=== PATIENT | male | born 1965 | race African-American/Black ===

== ENCOUNTER 2016-11-02 20:21 | Inpatient (IN) | payer OTHER ==
--- NOTE | 2016-11-02 21:49 | PDOC ---
History of Present Illness - General History Source: Patient Exam Limitations: No Limitations - History of Present Illness Initial Comments: 11/02/16 21:53 The patient is a 51 year old male, with a significant past medical history of HTN who presents to the emergency department with epigastric pain for the past 2 days. Patient states his pain is associated with nausea and vomiting ( nonbilious, nonbloody). Patient denies any fever or chills. Patient states he has never experienced this pain before and presents to the ED for further evaluation. He denies chest pain, headache or dizziness. He denies diarrhea or constipation. He denies dysuria, frequency, urgency or hematuria. Allergies: NKA Past surgical history: Femoral stent placement Social history: current everyday smoker PCP: None <Denisha Denney - Last Filed: 11/02/16 21:55> - General History Source: Patient <José ManuelRodrigo marks - Last Filed: 11/03/16 21:38> - General Chief Complaint: Pain Stated Complaint: CHEST PAIN Time Seen by Provider: 11/02/16 21:46 Past History <Denisha Denney - Last Filed: 11/02/16 21:55> - Past Medical History HTN: Yes - Suicide/Smoking/Psychosocial Hx Smoking History: Current every day smoker Have you smoked in the past 12 months: Yes Number of Cigarettes Smoked Daily: 7 Information on smoking cessation initiated: No Hx Alcohol Use: No Drug/Substance Use Hx: No Substance Use Type: None <Rodrigo Forrester - Last Filed: 11/03/16 21:38> - Past Medical History Allergies/Adverse Reactions: Allergies Allergy/AdvReac Type Severity Reaction Status Date / Time Penicillins Allergy Verified 11/02/16 21:53 Home Medications: Ambulatory Orders Amlodipine Besylate [Norvasc -] 10 mg PO DAILY 11/02/16 Aspirin [Aspirin EC] 81 mg PO DAILY 11/02/16 Clopidogrel Bisulfate [Plavix -] 75 mg PO DAILY 11/02/16 Lisinopril [Prinivil] 20 mg PO DAILY 11/02/16 Review of Systems - Review of Systems Able to Perform ROS?: Yes Comments:: 11/02/16 21:53 GENERAL/CONSTITUTIONAL: No fever or chills. No weakness. HEAD, EYES, EARS, NOSE AND THROAT: No change in vision. No ear pain or discharge. No sore throat. GASTROINTESTINAL: No nausea, vomiting, diarrhea or constipation. GENITOURINARY: No dysuria, frequency, or change in urination. CARDIOVASCULAR: No chest pain or shortness of breath. RESPIRATORY: No cough, wheezing, or hemoptysis. MUSCULOSKELETAL: No joint or muscle swelling or pain. No neck or back pain. SKIN: No rash NEUROLOGIC: No headache, vertigo, loss of consciousness, or change in strength/ sensation. ENDOCRINE: No increased thirst. No abnormal weight change. HEMATOLOGIC/LYMPHATIC: No anemia, easy bleeding, or history of blood clots. ALLERGIC/IMMUNOLOGIC: No hives or skin allergy. <Denisha Denney - Last Filed: 11/02/16 21:55> *Physical Exam - Vital Signs Last Vital Signs Temp Pulse Resp BP Pulse Ox 99.0 F 75 18 181/95 100 11/02/16 20:44 11/02/16 20:44 11/02/16 20:44 11/02/16 20:44 11/02/16 20:44 - Physical Exam Comments: 11/02/16 21:53 GENERAL: Awake, alert, and fully oriented, in +mild distress HEAD: No signs of trauma EYES: PERRLA, EOMI, sclera anicteric, conjunctiva clear ENT: Auricles normal inspection, hearing grossly normal, nares patent, oropharynx clear without exudates. Moist mucosa NECK: Normal ROM, supple, no lymphadenopathy, JVD, or masses LUNGS: Breath sounds equal, clear to auscultation bilaterally. No wheezes, and no crackles HEART: Regular rate and rhythm, normal S1 and S2, no murmurs, rubs or gallops ABDOMEN: + positive song's sign. Soft, nontender, normoactive bowel sounds. No guarding, no rebound. No masses EXTREMITIES: Normal range of motion, no edema. No clubbing or cyanosis. No cords, erythema, or tenderness NEUROLOGICAL: Cranial nerves II through XII grossly intact. Normal speech, normal gait SKIN: Warm, Dry, normal turgor, no rashes or lesions noted. <Denisha Denney - Last Filed: 11/02/16 21:55> - Vital Signs Last Vital Signs Temp Pulse Resp BP Pulse Ox 99.0 F 75 18 181/95 100 11/02/16 20:44 11/02/16 20:44 11/02/16 20:44 11/02/16 20:44 11/02/16 20:44 <Rodrigo Forrester - Last Filed: 11/03/16 21:38> ED Treatment Course - LABORATORY CBC & Chemistry Diagram: 11/03/16 20:45 11/03/16 08:40 <Rodrigo Forrester - Last Filed: 11/03/16 21:38> Medical Decision Making - Medical Decision Making 11/02/16 21:[address] Forrester Vent. rate 77 bpm NSR Cannot rule out Inferior infarct, age undetermined Abnormal ECG <Denisha Denney - Last Filed: 11/02/16 21:55> - Medical Decision Making 11/03/16 21:37 Dr. Forrester: The scribe's documentation has been prepared under my direction and personally reviewed by me in its entirery. I confirm that the note above accurately reflects all work, treatment, procedures, and medical decision making performed by me. <Rodrigo Forrester - Last Filed: 11/03/16 21:38> *DC/Admit/Observation/Transfer - Attestations Scribe Attestion: 11/02/16 21:53 Documentation prepared by Denisha Denney, acting as certified medical technician for Rodrigo Forrester DO. <Denisha Denney - Last Filed: 11/02/16 21:55> - Discharge Dispostion Admit: Yes <Rodrigo Forrester - Last Filed: 11/03/16 21:38> Diagnosis at time of Disposition: Pancreatitis Qualifiers: Chronicity: acute Pancreatitis type: other Acute pancreatitis complication: unspecified Qualified Code(s): K85.80 - Other acute pancreatitis without necrosis or infection
[2016-11-02] MEDS ORDERED: morphine CARPU-JECT 2 MG/1 ML DISP.SYRIN IVPUSH ONE (21:50)
[2016-11-02] MEDS ORDERED: ONDANSETRON 4 MG/2 ML VIAL IVPUSH STA (21:51)
[2016-11-02] MEDS ORDERED: morphine CARPU-JECT 4 MG/1 ML DISP.SYRIN ONE (22:12)
[2016-11-02] MEDS ORDERED: ONDANSETRON 4 MG/2 ML VIAL ONE (22:12)
[2016-11-02 22:14] LABS: BASOPHIL 1.1 % (0-2.0); EOSINOPHIL 1.6 % (0-4.5); MCH 27.8 pg (25.7-33.7); MCHC 32.8 g/dl (32.0-35.9); MEAN CELL VOLUME 84.9 fl (80-96); MEAN PLT VOLUME 7.7 fl (7.5-11.1); NEUTROPHILS 79.1 % (42.8-82.8); PLATELET COUNT 265 K/MM3 (134-434); RDW 15.7 % (11.9-15.9); WHITE BLOOD COUNT 16.7 K/mm3 (4.0-10.0)
[2016-11-02 22:27] LABS: INR 1.11 (0.82-1.09); PROTHROMBIN TIME (PATIENT) 12.2 SEC (9.98-11.88)
[2016-11-02 23:15] LABS: ANION GAP 9 (8-16); BILIRUBIN,TOTAL 0.4 mg/dL (0.2-1.0); CALCIUM 9.6 mg/dL (8.5-10.1); CO2 30 mmol/L (21-32); CREATININE 1.1 mg/dL (0.7-1.3); GLUCOSE,RANDOM 131 mg/dL (74-106); MAGNESIUM 2.2 mg/dL (1.8-2.4); SGOT/AST 20 U/L (15-37); SGPT/ALT 30 U/L (12-78); TOT PROT 8.2 g/dl (6.4-8.2)
[2016-11-02 23:17] LABS: ALK PHOS 82 U/L (45-117); CPK 332 IU/L (39-308); TROPONIN I < 0.02 ng/ml (0.00-0.05)
[2016-11-03] MEDS ORDERED: ONDANSETRON 4 MG/2 ML VIAL IVPUSH STA (03:24)
[2016-11-03] MEDS ORDERED: morphine CARPU-JECT 2 MG/1 ML DISP.SYRIN IVPUSH ONE (03:24)
[2016-11-03] MEDS ORDERED: morphine CARPU-JECT 4 MG/1 ML DISP.SYRIN ONE (03:31)
[2016-11-03] MEDS ORDERED: ONDANSETRON 4 MG/2 ML VIAL ONE ×2 (03:31→03:34)
--- NOTE | 2016-11-03 03:40 | PN ---
Teaching Attending Note Name of Resident: Gladys Chaparro ATTENDING PHYSICIAN STATEMENT I saw and evaluated the patient. I reviewed the resident's note and discussed the case with the resident. I agree with the resident's findings and plan as documented. SUBJECTIVE: 51 yo M with pmhx of HTN, femoral stent placement who presents to ED with epigastric pain. States that he had associated nausea. Pt. refused to answer more questions and requesting he wanted to sleep. OBJECTIVE: Physical: VS: Vital Signs Period Temp Pulse Resp BP Sys/Davis Pulse Ox Last 24 Hr 98.2 F-99.0 F 75-82 18-18 151-181/78-95 98-100 GEN: NAD, Resting in bed, able to speak full sentences HEENT: NCAT, PERRL, Throat without erythema or exudates CARD: RRR S1, S2 RESP: CTAB ABD: BSx4, NTD to palpation EXT: - C/C/E CBCD WBC 16.7 K/mm3 (4.0-10.0) H 11/02/16 22:10 RBC 5.33 M/mm3 (4.00-5.60) 11/02/16 22:10 Hgb 14.8 GM/dL (11.7-16.9) 11/02/16 22:10 Hct 45.2 % (35.4-49) 11/02/16 22:10 MCV 84.9 fl (80-96) 11/02/16 22:10 MCHC 32.8 g/dl (32.0-35.9) 11/02/16 22:10 RDW 15.7 % (11.9-15.9) 11/02/16 22:10 Plt Count 265 K/MM3 (134-434) 11/02/16 22:10 MPV 7.7 fl (7.5-11.1) 11/02/16 22:10 CMP Sodium 138 mmol/L (136-145) 11/02/16 22:10 Potassium 4.1 mmol/L (3.5-5.1) 11/02/16 22:10 Chloride 99 mmol/L (98-107) 11/02/16 22:10 Carbon Dioxide 30 mmol/L (21-32) 11/02/16 22:10 Anion Gap 9 (8-16) 11/02/16 22:10 BUN 12 mg/dL (7-18) 11/02/16 22:10 Creatinine 1.1 mg/dL (0.7-1.3) 11/02/16 22:10 Creat Clearance w eGFR > 60 (>60) 11/02/16 22:10 Random Glucose 131 mg/dL (74-106) H 11/02/16 22:10 Calcium 9.6 mg/dL (8.5-10.1) 11/02/16 22:10 Total Bilirubin 0.4 mg/dL (0.2-1.0) 11/02/16 22:10 AST 20 U/L (15-37) 11/02/16 22:10 ALT 30 U/L (12-78) 11/02/16 22:10 Alkaline Phosphatase 82 U/L (45-117) 11/02/16 22:10 Total Protein 8.2 g/dl (6.4-8.2) 11/02/16 22:10 Albumin 4.0 g/dl (3.4-5.0) 11/02/16 22:10 CARDIAC ENZYMES Creatine Kinase 332 IU/L (39-308) H 11/02/16 22:10 Troponin I < 0.02 ng/ml (0.00-0.05) 11/02/16 22:10 CT ABD/Pelvis - Mild Acute Pancreatitis- PRE-JUÁREZ READ ASSESSMENT AND PLAN: 51 yo M with pmhx of HTN and femoral stent placement who presents with epigastric abdominal pain 1.) Abdominal Pain - DDx Acute gastroenteritis - Less likely pancreatitis - NPO, IVF, pain control - Lipase not elevated, recheck in am - Await final read of CT 2.) HTN - C/W home meds 3.) Dvt Ppx - Low Risk - SCDs Place in Obs
--- NOTE | 2016-11-03 03:51 | HP ---
CHIEF COMPLAINT: " Epigastric pain" PCP: None HISTORY OF PRESENT ILLNESS: Patient is a 51 year old male with significant past medical history of Hypertension, PVD s/p stent in the left groin presented to the ED with the chief complaint of epigastric pain x 2 days. As per the patient, he was apparently well until 2 days ago. He then slowly started having epigastric pain , burning in nature, radiating towards the left side, aggravated on deep inspiration and standing, no relation to food. It was associated with nausea but no vomiting. He mentions he has never had this symptom before. Pain was unbearable, 10/10 in intensity and came in the ER for further evaluation. Denies chest pain, sob, cough, palpitation, vomiting. Bowel/Bladder habit normal. No hematochezia, melana. Sleep normal. Appetite decreased since his illness. ER course was notable for: (1) Afebrile, hemodynamically stable, Leukocytosis 16.7; Normal Lipase (2) CT abdomen and pelvis: Pancreatitis (3) IV Morphine; Zofran Recent Travel: None PAST MEDICAL HISTORY: Hypertension, PVD s/p stent in the left groin PAST SURGICAL HISTORY: As mentioned above Social History: Smoking: Occasional Alcohol: Denies Drugs: Denies Family History: Non contributory Allergies Penicillins Allergy (Verified 11/02/16 21:53) HOME MEDICATIONS: Home Medications Medication Instructions Recorded Amlodipine Besylate [Norvasc -] 10 mg PO DAILY 11/02/16 Aspirin [Aspirin EC] 81 mg PO DAILY 11/02/16 Clopidogrel Bisulfate [Plavix -] 75 mg PO DAILY 11/02/16 Lisinopril [Prinivil] 20 mg PO DAILY 11/02/16 REVIEW OF SYSTEMS CONSTITUTIONAL: Absent: fever, chills, diaphoresis, generalized weakness, malaise, loss of appetite, weight change HEENT: Absent: rhinorrhea, nasal congestion, throat pain, throat swelling, difficulty swallowing, mouth swelling, ear pain, eye pain, visual changes CARDIOVASCULAR: Absent: chest pain, syncope, palpitations, irregular heart rate, lightheadedness , peripheral edema RESPIRATORY: Absent: cough, shortness of breath, dyspnea with exertion, orthopnea, wheezing, stridor, hemoptysis GASTROINTESTINAL: Present: abdominal pain,nausea Absent: abdominal distension, vomiting, diarrhea, constipation, melena, hematochezia GENITOURINARY: Absent: dysuria, frequency, urgency, hesitancy, hematuria, flank pain, genital pain MUSCULOSKELETAL: Absent: myalgia, arthralgia, joint swelling, back pain, neck pain SKIN: Absent: rash, itching, pallor HEMATOLOGIC/IMMUNOLOGIC: Absent: easy bleeding, easy bruising, lymphadenopathy, frequent infections ENDOCRINE: Absent: unexplained weight gain, unexplained weight loss, heat intolerance, cold intolerance NEUROLOGIC: Absent: headache, focal weakness or paresthesias, dizziness, unsteady gait, seizure, mental status changes, bladder or bowel incontinence PSYCHIATRIC: Absent: anxiety, depression, suicidal or homicidal ideation, hallucinations. PHYSICAL EXAMINATION Vital Signs - 24 hr 11/02/16 20:44 Temperature 99.0 F Pulse Rate 75 Respiratory 18 Rate Blood Pressure 181/95 O2 Sat by Pulse 100 Oximetry (%) GENERAL: Patient lying comfortably in bed, Awake, alert, and fully oriented, in no acute distress. HEAD: Normal with no signs of trauma. EYES: EOM intact, no pallor or icterus. EARS, NOSE, THROAT: Ears normal. Moist mucous membranes. NECK: Supple LUNGS: Breath sounds equal, clear to auscultation bilaterally. No wheezes, and no crackles. No accessory muscle use. HEART: Regular rate and rhythm, normal S1 and S2 without murmur. ABDOMEN: Umbilical hernia, Soft, nontender and no murphys sign (patient had just received morphine), not distended, normoactive bowel sounds, no guarding, no rebound, no masses. No hepatomegaly or splenomegaly. MUSCULOSKELETAL: Normal range of motion at all joints. No bony deformities or tenderness. No CVA tenderness. UPPER EXTREMITIES: 2+ pulses, warm, well-perfused. No cyanosis. No clubbing. No peripheral edema. LOWER EXTREMITIES: 2+ pulses, warm, well-perfused. No calf tenderness. No peripheral edema. NEUROLOGICAL: No facial droop, unable to do full neuro as patient got irritated during physical exam. Normal speech. Gait not observed. PSYCHIATRIC: Uncooperative. Good eye contact. Appropriate mood and affect. SKIN: Warm, dry, normal turgor, no rashes or lesions noted, normal capillary refill. Laboratory Results - last 24 hr 11/02/16 11/02/16 11/02/16 22:10 22:10 22:10 WBC 16.7 H RBC 5.33 Hgb 14.8 Hct 45.2 MCV 84.9 MCH 27.8 MCHC 32.8 RDW 15.7 Plt Count 265 MPV 7.7 Neutrophils % 79.1 Lymphocytes % 11.9 Monocytes % 6.3 Eosinophils % 1.6 Basophils % 1.1 PT with INR 12.20 H INR 1.11 Sodium 138 Potassium 4.1 Chloride 99 Carbon Dioxide 30 Anion Gap 9 BUN 12 Creatinine 1.1 Creat Clearance w eGFR > 60 Random Glucose 131 H Calcium 9.6 Magnesium 2.2 Total Bilirubin 0.4 AST 20 ALT 30 Alkaline Phosphatase 82 Creatine Kinase 332 H Creatine Kinase Index 0.9 CK-MB (CK-2) 3.019 Troponin I < 0.02 Total Protein 8.2 Albumin 4.0 Lipase 282 ASSESSMENT/PLAN: Patient is a 51 year old male with significant past medical history of Hypertension, PVD s/p stent in the left groin presented to the ED with the chief complaint of epigastric pain x 2 days. # Epigastric pain likely due to Gastritis Less likely due to pancreatitis Presented with epigastric pain x 2 days, burning in nature, associated with nausea, no h/o gall stone or alcohol intake On arrival, he was afebrile, hemodynamically stable As per ED physician, patient had positive [place] sign on arrival but upon examination [place] was negative and abdominal exam was benign most likely because patient had received IV Morphine at that time. Lipase was normal, normal liver enzymes, USG gall bladder was normal. However, CT abdomen/Pelvis showed Pancreatitis. Normal lipase could be a lab error, hence will repeat it in the morning along with Amylase and will wait for the official read of CT abdomen/Pelvis. Placed in observation in Med-Surg NPO IV NS @ 100mls/hr IV Protonix 40mg Daily # Hypertension-controlled Continue Amlodipine 10mg once he starts taking PO. # PVD s/p stent in the left groin Continue Aspirin and Plavix once he starts taking PO. # FEN IV NS @ 100mls/hr Electrolytes WNL, to be repeated tomorrow NPO # Prophylaxis For DVT: Heparin 5000 TID sq For GI: On Protonix # Code Status: Full Code # Dispo: Placed in Observation. Duration of stay likely 1-2 days. Illness, Investigation and Plan of care explained to the patient. He verbalized understanding. Case seen and discussed with Dr. Quach. Visit type - Emergency Visit Emergency Visit: Yes ED Registration Date: 11/03/16 Care time: The patient presented to the Emergency Department on the above date and was hospitalized for further evaluation of their emergent condition. - New Patient This patient is new to me today: Yes Date on this admission: 11/03/16 - Critical Care Critical Care patient: No
[2016-11-03] MEDS ORDERED: SODIUM CHLORIDE 1,000 ML IV SCH ×4 (04:00→20:36)
[2016-11-03 05:23] VITALS: BMI 39.2
[2016-11-03] MEDS: HEPARIN NA (PORCINE) 5,000 UNITS/ML 1ML VIAL SQ SCH ×2 (06:37→14:28)
[2016-11-03] MEDS: LISINOPRIL 20 MG TABLET (FP) PO SCH (07:17)
[2016-11-03] MEDS: amLODIPine BESYLATE 10 MG TABLET (FP) PO SCH (07:17)
[2016-11-03] MEDS ORDERED: ACETAMINOPHEN 325 MG TABLET (FP) PO PRN (07:45)
[2016-11-03 09:05] LABS: BASOPHIL 1.1 % (0-2.0); EOSINOPHIL 2.6 % (0-4.5); MCHC 33.1 g/dl (32.0-35.9); MEAN CELL VOLUME 84.7 fl (80-96); MEAN PLT VOLUME 7.7 fl (7.5-11.1); NEUTROPHILS 72.3 % (42.8-82.8); PLATELET COUNT 249 K/MM3 (134-434); RDW 15.8 % (11.9-15.9); WHITE BLOOD COUNT 15.5 K/mm3 (4.0-10.0)
[2016-11-03 09:33] LABS: ALBUMIN 3.7 g/dl (3.4-5.0); ANION GAP 5 (8-16); BILIRUBIN,TOTAL 0.6 mg/dL (0.2-1.0); CALCIUM 9.5 mg/dL (8.5-10.1); CO2 30 mmol/L (21-32); CREATININE 0.8 mg/dL (0.7-1.3); GLUCOSE,RANDOM 117 mg/dL (74-106); MAGNESIUM 2.2 mg/dL (1.8-2.4); SGOT/AST 20 U/L (15-37); SGPT/ALT 33 U/L (12-78); TOT PROT 7.7 g/dl (6.4-8.2)
[2016-11-03 09:34] LABS: ALK PHOS 80 U/L (45-117)
[2016-11-03 09:38] LABS: AMYLASE 52 U/L (25-115)
[2016-11-03] MEDS ORDERED: PANTOPRAZOLE SODIUM 40 MG in SODIUM CHLORIDE 100 ML IVPB SCH (10:00)
[2016-11-03 10:45] LABS: CPK 275 IU/L (39-308); TROPONIN I < 0.02 ng/ml (0.00-0.05)
[2016-11-03 10:50] LABS: URINE APPEARANCE CLEAR; URINE BILIRUBIN NEGATIVE (NEGATIVE); URINE BLOOD NEGATIVE (NEGATIVE); URINE COLOR LTYELLOW; URINE GLUCOSE (UA) NEGATIVE (NEGATIVE); URINE KETONE NEGATIVE (NEGATIVE); URINE NITRITE NEGATIVE (NEGATIVE); URINE PROTEIN NEGATIVE (NEGATIVE); URINE UROBILINOGEN NEGATIVE mg/dL (0.2-1.0)
[2016-11-03 10:57] LABS: URINE LEUK ESTERASE 1+ (NEGATIVE)
[2016-11-03 11:00] LABS: URINE MUCUS RARE; URINE RBC 1 /hpf (0-3); URINE WBC 3 /hpf (3-5)
--- NOTE | 2016-11-03 11:30 | EKG ---
Test Reason : Blood Pressure : / mmHG Vent. Rate : 077 BPM Atrial Rate : 077 BPM P-R Int : 174 ms QRS Dur : 094 ms QT Int : 388 ms P-R-T Axes : 030 013 068 degrees QTc Int : 439 ms NORMAL SINUS RHYTHM CANNOT RULE OUT INFERIOR INFARCT , AGE UNDETERMINED ABNORMAL ECG NO PREVIOUS ECGS AVAILABLE Confirmed by HOWARD YE MD ([id number]) on 11/03/2016 11:29:39 AM Referred By: Confirmed By:HOWARD YE MD
[2016-11-03] MEDS: HYDROmorphone HCL CARPU-JECT 1 MG/1 ML DISP.SYRIN IVPB PRN ×2 (12:02→17:40)
--- NOTE | 2016-11-03 12:28 | PN ---
Physical Exam: SUBJECTIVE: Patient seen and examined at bedside. present. Abdominal pain is better since receiving first dose of dilaudid. Not nauseous at present. Patient denies recent alcohol use; drank heavily in his teenage years, now only 2-3 times per year. OBJECTIVE: Vital Signs Period Temp Pulse Resp BP Sys/Davis Pulse Ox Last 24 Hr 97.9 F-98.2 F 67-92 18-20 149-173/68-101 98-99 GENERAL: The patient is awake, alert, and fully oriented, in no acute distress. HEAD: Normal with no signs of trauma. EYES: PERRL, extraocular movements intact, sclera anicteric, conjunctiva clear. No ptosis. LUNGS: Breath sounds equal, clear to auscultation bilaterally, no wheezes, no crackles, no accessory muscle use. HEART: Regular rate and rhythm, S1, S2 without murmur, rub or gallop. ABDOMEN: Soft, distended, tympanic; right lower and right upper quadrant tenderness, +guarding, no rebound EXTREMITIES: 2+ pulses, warm, well-perfused, no edema; no calf tenderness NEUROLOGICAL: Cranial nerves II through XII grossly intact. Normal speech, moves all extremities freely Laboratory Results - last 24 hr 11/03/16 11/03/16 11/03/16 08:15 08:40 08:40 WBC 15.5 H RBC 5.29 Hgb 14.8 Hct 44.8 MCV 84.7 MCH 28.0 MCHC 33.1 RDW 15.8 Plt Count 249 MPV 7.7 Neutrophils % 72.3 Lymphocytes % 15.0 D Monocytes % 9.0 Eosinophils % 2.6 Basophils % 1.1 Sodium 135 L Potassium 4.0 Chloride 100 Carbon Dioxide 30 Anion Gap 5 L BUN 10 Creatinine 0.8 D Creat Clearance w eGFR > 60 Random Glucose 117 H Hemoglobin A1c % Calcium 9.5 Magnesium 2.2 Total Bilirubin 0.6 D AST 20 ALT 33 Alkaline Phosphatase 80 Creatine Kinase 275 Creatine Kinase Index 0.7 CK-MB (CK-2) 1.993 Troponin I < 0.02 Total Protein 7.7 Albumin 3.7 Total Amylase 52 Lipase 278 Urine Color Ltyellow Urine Appearance Clear Urine pH 6.0 Urine Protein Negative Urine Glucose (UA) Negative Urine Ketones Negative Urine Blood Negative Urine Nitrite Negative Urine Bilirubin Negative Urine Urobilinogen Negative Urine RBC 1 Urine WBC 3 Urine Mucus Rare 11/03/16 11/03/16 11/03/16 08:40 08:40 08:40 WBC RBC Hgb Hct MCV MCH MCHC RDW Plt Count MPV Neutrophils % Lymphocytes % Monocytes % Eosinophils % Basophils % Sodium Potassium Chloride Carbon Dioxide Anion Gap BUN Creatinine Creat Clearance w eGFR Random Glucose Hemoglobin A1c % 6.5 H Calcium Magnesium Total Bilirubin AST ALT Alkaline Phosphatase Creatine Kinase Cancelled Creatine Kinase Index CK-MB (CK-2) Troponin I Total Protein Albumin Total Amylase Cancelled Lipase Urine Color Urine Appearance Urine pH Urine Protein Urine Glucose (UA) Urine Ketones Urine Blood Urine Nitrite Urine Bilirubin Urine Urobilinogen Urine RBC Urine WBC Urine Mucus Active Medications Generic Name Dose Route Start Last Admin Trade Name Freq PRN Reason Stop Dose Admin Acetaminophen 650 mg 11/03/16 07:45 Tylenol - PO Q6H PRN FEVER OR PAIN Amlodipine Besylate 10 mg 11/03/16 07:15 11/03/16 07:17 Norvasc - PO 10 mg DAILY ZULEIMA Administration Heparin Sodium (Porcine) 5,000 unit 11/03/16 06:00 11/03/16 06:37 Heparin - SQ 5,000 unit TID ZULEIMA Administration Hydromorphone HCl 1 mg 11/03/16 11:48 11/03/16 12:02 Dilaudid Injection - IVPB 1 mg Q4H PRN Administration PAIN Pantoprazole Sodium 40 mg/ 100 mls @ 200 mls/hr 11/03/16 10:00 11/03/16 10:00 Sodium Chloride IVPB 200 mls/hr DAILY ZULEIMA Administration Sodium Chloride 1,000 mls @ 150 mls/hr 11/03/16 11:48 11/03/16 12:02 Normal Saline - IV 150 mls/hr ASDIR ZULEIMA Administration Lisinopril 20 mg 11/03/16 07:15 11/03/16 07:17 Prinivil PO 20 mg DAILY ZULEIMA Administration ASSESSMENT/PLAN 51 year-old male with a PMH significant for HTN, and PVD s/p left common iliac artery stent (x 1 year). Was off all medications due to lack of insurance until three weeks ago when he restarted anti-hypertensives, ASA, and Plavix. Admitted for acute pancreatitis. Acute pancreatitis --11/03 CTAP: fat stranding surrounding the head of the pancreas c/w pancreatitis --afebrile but elevated WBC and subjective fever and chills over the past few days accompanying abdominal pain; may be SIRS response, no abx for now --IV fluids --dilaudid, Zofran PRN --GI consult requested --lipid panel ordered Hypertension --BP has been elevated possibly secondary to pain --continue home Lisinopril, amlodipine PVD s/p left common iliac artery stent --had been off Plavix and ASA for unclear period of time due to lack of insurance, restarted 3 weeks ago --continue ASA, Plavix Fluids: LR @ 125mL/hr Electrolytes: replete as indicated Nutrition: NPO DVT prophylaxis: subq heparin Dispo: continues to require inpatient care. Full code. Visit type - Emergency Visit Emergency Visit: Yes ED Registration Date: 11/03/16 Care time: The patient presented to the Emergency Department on the above date and was hospitalized for further evaluation of their emergent condition. - New Patient This patient is new to me today: Yes Date on this admission: 11/03/16 - Critical Care Critical Care patient: No
[2016-11-03] MEDS ORDERED: ONDANSETRON 4 MG/2 ML VIAL IVPUSH PRN (13:12)
[2016-11-03] MEDS ORDERED: LACTATED RINGERS SOLUTION 1,000 ML IV SCH ×2 (13:30→17:47)
--- NOTE | 2016-11-03 17:43 | CON.GI ---
Consult Consult Specialty:: gastroenterology Referred by:: hospitalist - History of Present Illness History of Present Illness: kameron is a 51 year old male with significant past medical history of Hypertension, PVD s/p stent in the left groin presented to the ED with the chief complaint of epigastric pain x 2 days. As per the patient, he was apparently well until 2 days ago. He then slowly started having epigastric pain , burning in nature, radiating towards the left side, aggravated on deep inspiration and standing, no relation to food. It was associated with nausea but no vomiting. He mentions he has never had this symptom before. Pain was unbearable, 10/10 in intensity and came in the ER for further evaluation. Denies chest pain, sob, cough, palpitation, vomiting. Bowel/Bladder habit normal. No hematochezia, melana. In the floor he continued to have persistent abdominal pain,the pain is diffuse 10/10 despite iv hydration, IVF and pain medication - Alcohol/Substance Use Hx Alcohol Use: No - Smoking History Smoking history: Current every day smoker Have you smoked in the past 12 months: Yes Aproximately how many cigarettes per day: 7 Home Medications - Allergies Allergies/Adverse Reactions: Allergies Allergy/AdvReac Type Severity Reaction Status Date / Time Penicillins Allergy Verified 11/02/16 21:53 - Home Medications Home Medications: Ambulatory Orders Amlodipine Besylate [Norvasc -] 10 mg PO DAILY 11/02/16 Aspirin [Aspirin EC] 81 mg PO DAILY 11/02/16 Clopidogrel Bisulfate [Plavix -] 75 mg PO DAILY 11/02/16 Lisinopril [Prinivil] 20 mg PO DAILY 11/02/16 Physical Exam-GI Vital Signs: Vital Signs Temperature 98.2 F 11/03/16 15:00 Pulse Rate 67 11/03/16 09:00 Respiratory Rate 18 11/03/16 15:00 Blood Pressure 149/101 11/03/16 09:00 O2 Sat by Pulse Oximetry (%) 99 11/03/16 09:00 Constitutional: Yes: Obese Eyes: Yes: Conjunctiva Clear HENT: Yes: Normocephalic Neck: Yes: Trachea Midline Cardiovascular: Yes: Regular Rate and Rhythm Respiratory: Yes: CTA Bilaterally ...Palpate: Yes: Soft, Tenderness (--diffuse). No: Firm/Rigid, Tenderness, Rebound ...Percussion: Yes: Tympanitic Labs: INR, PTT INR 1.11 (0.82-1.09) 11/02/16 22:10 CBCD WBC 15.5 K/mm3 (4.0-10.0) H 11/03/16 08:40 RBC 5.29 M/mm3 (4.00-5.60) 11/03/16 08:40 Hgb 14.8 GM/dL (11.7-16.9) 11/03/16 08:40 Hct 44.8 % (35.4-49) 11/03/16 08:40 MCV 84.7 fl (80-96) 11/03/16 08:40 MCHC 33.1 g/dl (32.0-35.9) 11/03/16 08:40 RDW 15.8 % (11.9-15.9) 11/03/16 08:40 Plt Count 249 K/MM3 (134-434) 11/03/16 08:40 MPV 7.7 fl (7.5-11.1) 11/03/16 08:40 CMP Sodium 135 mmol/L (136-145) L 11/03/16 08:40 Potassium 4.0 mmol/L (3.5-5.1) 11/03/16 08:40 Chloride 100 mmol/L (98-107) 11/03/16 08:40 Carbon Dioxide 30 mmol/L (21-32) 11/03/16 08:40 Anion Gap 5 (8-16) L 11/03/16 08:40 BUN 10 mg/dL (7-18) 11/03/16 08:40 Creatinine 0.8 mg/dL (0.7-1.3) D 11/03/16 08:40 Creat Clearance w eGFR > 60 (>60) 11/03/16 08:40 Calcium 9.5 mg/dL (8.5-10.1) 11/03/16 08:40 Total Bilirubin 0.6 mg/dL (0.2-1.0) D 11/03/16 08:40 AST 20 U/L (15-37) 11/03/16 08:40 ALT 33 U/L (12-78) 11/03/16 08:40 Alkaline Phosphatase 80 U/L (45-117) 11/03/16 08:40 Total Protein 7.7 g/dl (6.4-8.2) 11/03/16 08:40 Albumin 3.7 g/dl (3.4-5.0) 11/03/16 08:40 Problem List - Problems (1) Abdominal pain Assessment/Plan: associated with elevated wbc, normal amulase and lipsaw, pancreatic stranding by catscan R/o mesenteric ischemia R> CTA of the abdomen surgical consultation--serial abdominal exmination increase IVF to 175cc/hr discussed with Miss Ford Code(s): R10.9 - UNSPECIFIED ABDOMINAL PAIN
[2016-11-03] MEDS ORDERED: HEPARIN NA (PORCINE) 5,000 UNITS/ML 1ML VIAL IVPUSH PRN ×2 (19:46)
[2016-11-03] MEDS ORDERED: SODIUM CHLORIDE 1,000 ML IV STA (19:48)
[2016-11-03] MEDS ORDERED: VANCOMYCIN 2,000 MG in DEXTROSE 5%-WATER - 500 ML IVPB ONE (19:51)
[2016-11-03] MEDS ORDERED: PIPERACILLIN/TAZOB 3.375 GM/50 ML PRE-DOCKED IVPB SCH (20:00)
[2016-11-03] MEDS ORDERED: HEPARIN INFUSION - 500 ML IVPB SCH (20:00)
--- NOTE | 2016-11-03 20:30 | PN ---
Physical Exam: SUBJECTIVE: Patient seen and examined for second time today. Just after dilaudid administration, denies abdominal pain. OBJECTIVE: Vital Signs Period Temp Pulse Resp BP Sys/Davis Pulse Ox Last 24 Hr 97.9 F-98.2 F 67-92 18-20 149-173/68-101 98-99 Abdomen: still quite distended, tympanic; no tenderness elicited, active bowel sounds CBCD WBC 15.5 K/mm3 (4.0-10.0) H 11/03/16 08:40 RBC 5.29 M/mm3 (4.00-5.60) 11/03/16 08:40 Hgb 14.8 GM/dL (11.7-16.9) 11/03/16 08:40 Hct 44.8 % (35.4-49) 11/03/16 08:40 MCV 84.7 fl (80-96) 11/03/16 08:40 MCHC 33.1 g/dl (32.0-35.9) 11/03/16 08:40 RDW 15.8 % (11.9-15.9) 11/03/16 08:40 Plt Count 249 K/MM3 (134-434) 11/03/16 08:40 MPV 7.7 fl (7.5-11.1) 11/03/16 08:40 CMP Sodium 135 mmol/L (136-145) L 11/03/16 08:40 Potassium 4.0 mmol/L (3.5-5.1) 11/03/16 08:40 Chloride 100 mmol/L (98-107) 11/03/16 08:40 Carbon Dioxide 30 mmol/L (21-32) 11/03/16 08:40 Anion Gap 5 (8-16) L 11/03/16 08:40 BUN 10 mg/dL (7-18) 11/03/16 08:40 Creatinine 0.8 mg/dL (0.7-1.3) D 11/03/16 08:40 Creat Clearance w eGFR > 60 (>60) 11/03/16 08:40 Calcium 9.5 mg/dL (8.5-10.1) 11/03/16 08:40 Total Bilirubin 0.6 mg/dL (0.2-1.0) D 11/03/16 08:40 AST 20 U/L (15-37) 11/03/16 08:40 ALT 33 U/L (12-78) 11/03/16 08:40 Alkaline Phosphatase 80 U/L (45-117) 11/03/16 08:40 Total Protein 7.7 g/dl (6.4-8.2) 11/03/16 08:40 Albumin 3.7 g/dl (3.4-5.0) 11/03/16 08:40 Current Medications Generic Name Dose Route Start Last Admin Trade Name Freq PRN Reason Stop Dose Admin Acetaminophen 650 mg 11/03/16 07:45 Tylenol - PO Q6H PRN FEVER OR PAIN Amlodipine Besylate 10 mg 11/03/16 07:15 11/03/16 07:17 Norvasc - PO 10 mg DAILY ZULEIMA Administration Heparin Sodium (Porcine) 1,000 unit 11/03/16 19:46 Heparin - IVPUSH PRN PRN Heparin Heparin Sodium (Porcine) 5,000 unit 11/03/16 19:46 Heparin - IVPUSH PRN PRN Heparin Hydromorphone HCl 2 mg 11/03/16 17:51 Dilaudid Injection - IVPB Q4H PRN PAIN Pantoprazole Sodium 40 mg/ 100 mls @ 200 mls/hr 11/03/16 22:00 Sodium Chloride IVPB BID ZULEIMA Heparin Sodium/Dextrose 500 mls @ 20 mls/hr 11/03/16 20:00 11/03/16 20:27 Heparin Infusion - IVPB 20 mls/hr TITR ZULEIMA Administration Protocol 1,000 UNITS/HR Sodium Chloride 1,000 mls @ 1,000 mls/hr 11/03/16 19:48 Normal Saline - IV 11/03/16 20:47 ASDIR STA Vancomycin HCl 2,000 mg/ 500 mls @ 250 mls/hr 11/03/16 19:51 Dextrose IVPB 11/03/16 21:50 ONCE ONE Protocol Sodium Chloride 1,000 mls @ 150 mls/hr 11/03/16 20:15 Normal Saline - IV ASDIR ZULEIMA Imipenem/Cilastatin Sodium 500 100 mls @ 100 mls/hr 11/03/16 21:00 mg/ Sodium Chloride IVPB Q6H-IV ZULEIMA Protocol Lisinopril 20 mg 11/03/16 07:15 09/20/17 07:17 Prinivil PO 20 mg DAILY ZULEIMA Administration Ondansetron HCl 4 mg 11/03/16 13:12 Zofran Injection IVPUSH 11/04/16 01:13 Q4H PRN NAUSEA AND/OR VOMITING ASSESSMENT/PLAN Discussed case at length with Dr. English (GI) who expressed concern for mesenteric ischemia. Also discussed with Dr. Power (surgery), and Dr. Short ( radiology). --20g peripheral IV access obtained --IV heparin drip started --NPO --Vanc and imipenem started --aggressive IV hydration --lactic acid, stat labs --Xray abdomen shows PO contrast in colon; will proceed with CTA --vascular consult ordered
[2016-11-03] MEDS ORDERED: PT OWN MED DRAWER 7, Y5N ONE (20:38)
[2016-11-03] MEDS ORDERED: IMIPENEM/CILASTATIN SODIUM 500 MG in DEXTROSE 5%-WATER - 100 ML IVPB SCH (21:00)
[2016-11-03] MEDS ORDERED: IMIPENEM/CILASTATIN SODIUM 500 MG in SODIUM CHLORIDE 100 ML IVPB SCH (21:00)
[2016-11-03] MEDS: HYDROmorphone HCL CARPU-JECT 2 MG/1 ML DISP.SYRIN IVPB PRN (21:10)
[2016-11-03 21:16] LABS: BASOPHIL 0.9 % (0-2.0); MEAN CELL VOLUME 84.8 fl (80-96); MEAN PLT VOLUME 8.2 fl (7.5-11.1); NEUTROPHILS 74.4 % (42.8-82.8); PLATELET COUNT 242 K/MM3 (134-434); RDW 15.7 % (11.9-15.9); WHITE BLOOD COUNT 16.1 K/mm3 (4.0-10.0)
[2016-11-03 21:42] LABS: ALBUMIN 3.5 g/dl (3.4-5.0); ALK PHOS 79 U/L (45-117); ANION GAP 6 (8-16); BILIRUBIN,TOTAL 0.6 mg/dL (0.2-1.0); CALCIUM 9.1 mg/dL (8.5-10.1); CO2 29 mmol/L (21-32); CREATININE 0.8 mg/dL (0.7-1.3); GLUCOSE,RANDOM 93 mg/dL (74-106); MAGNESIUM 2.1 mg/dL (1.8-2.4); SGOT/AST 17 U/L (15-37); SGPT/ALT 31 U/L (12-78); TOT PROT 7.5 g/dl (6.4-8.2)
[2016-11-03 21:44] LABS: TROPONIN I < 0.02 ng/ml (0.00-0.05)
[2016-11-03] MEDS: PANTOPRAZOLE SODIUM 40 MG in SODIUM CHLORIDE 100 ML IVPB SCH (23:00)
--- NOTE | 2016-11-03 23:13 | CONSULT ---
Consult Consult Specialty:: Surgery Reason for Consultation:: Abdominal pain - History of Present Illness History of Present Illness: 51 male present to the ER with abdominal pain States that he was drinking alcohol two days ago after which the pain started No melena/fevers/chills Pain has since improved - History Source History Provided By: Patient, Medical Record Limitations to Obtaining History: No Limitations - Alcohol/Substance Use Hx Alcohol Use: No - Smoking History Smoking history: Current every day smoker Have you smoked in the past 12 months: Yes Aproximately how many cigarettes per day: 7 Home Medications - Allergies Allergies/Adverse Reactions: Allergies Allergy/AdvReac Type Severity Reaction Status Date / Time Penicillins Allergy Verified 11/02/16 21:53 - Home Medications Home Medications: Ambulatory Orders Amlodipine Besylate [Norvasc -] 10 mg PO DAILY 11/02/16 Aspirin [Aspirin EC] 81 mg PO DAILY 11/02/16 Clopidogrel Bisulfate [Plavix -] 75 mg PO DAILY 11/02/16 Lisinopril [Prinivil] 20 mg PO DAILY 11/02/16 Family Disease History - Family Disease History Family History: Denies Review of Systems - Review of Systems Constitutional: denies: Chills, Fever Neck: reports: No Symptoms Cardiovascular: denies: Chest Pain Respiratory: denies: Cough Gastrointestinal: reports: Abdominal Pain. denies: Diarrhea, Melena, Nausea, Vomiting Neurological: denies: Change in LOC Pain Intensity: 3 Physical Exam Vital Signs: Vital Signs Temperature 99.4 F 11/03/16 17:15 Pulse Rate 71 11/03/16 17:15 Respiratory Rate 20 11/03/16 17:15 Blood Pressure 170/73 11/03/16 17:15 O2 Sat by Pulse Oximetry (%) 99 11/03/16 09:00 Constitutional: Yes: Calm Neck: Yes: WNL Cardiovascular: Yes: Regular Rate and Rhythm Respiratory: Yes: Regular Gastrointestinal: Yes: Soft, Abdomen, Obese, Tenderness (Minimal epigastric tenderness). No: Tenderness, Rebound Neurological: Yes: Alert, Oriented Labs: CBC, BMP 11/03/16 20:45 11/03/16 20:45 Imaging - Results Cat Scan: Report Reviewed, Image Reviewed Problem List - Problems (1) Abdominal pain Code(s): R10.9 - UNSPECIFIED ABDOMINAL PAIN Qualifiers: Abdominal location: epigastric Qualified Code(s): R10.13 - Epigastric pain (2) Pancreatitis Code(s): K85.90 - ACUTE PANCREATITIS WITHOUT NECROSIS OR INFECTION, UNSP Qualifiers: Chronicity: acute Pancreatitis type: other Acute pancreatitis complication: unspecified Qualified Code(s): K85.80 - Other acute pancreatitis without necrosis or infection Assessment/Plan 51 male with epigastric pain starting after drinking alcohol Evidence of pancreatitis on CT Concern by GI and primary team for mesenteric ischemia Pain currently improved NPO IV fluids For concerns of mesenteric ischemia, consider vascular surgery evaluation, IV heparin, IV fluids No emergent surgery needed at this time Will follow
[2016-11-04] MEDS: HYDROmorphone HCL CARPU-JECT 2 MG/1 ML DISP.SYRIN IVPB PRN ×3 (01:28→18:32)
[2016-11-04] MEDS: IMIPENEM/CILASTATIN SODIUM 500 MG in SODIUM CHLORIDE 100 ML IVPB SCH ×3 (02:21→12:23)
[2016-11-04 07:27] LABS: BASOPHIL 0.6 % (0-2.0); EOSINOPHIL 1.9 % (0-4.5); MCH 27.7 pg (25.7-33.7); MCHC 32.9 g/dl (32.0-35.9); MEAN CELL VOLUME 84.3 fl (80-96); NEUTROPHILS 78.3 % (42.8-82.8); PLATELET COUNT 232 K/MM3 (134-434); RDW 15.7 % (11.9-15.9); WHITE BLOOD COUNT 15.2 K/mm3 (4.0-10.0)
[2016-11-04] MEDS ORDERED: SODIUM CHLORIDE 1,000 ML IV SCH (07:34)
[2016-11-04 08:01] LABS: ALBUMIN 3.3 g/dl (3.4-5.0); ANION GAP 7 (8-16); CALCIUM 9.4 mg/dL (8.5-10.1); CHOLESTEROL 207 mg/dL (50-200); CO2 28 mmol/L (21-32); CREATININE 0.7 mg/dL (0.7-1.3); GLUCOSE,RANDOM 85 mg/dL (74-106); PHOSPHOROUS 3.6 mg/dL (2.5-4.9)
[2016-11-04 08:05] LABS: BILIRUBIN,DIRECT 0.2 mg/dL (0.0-0.2); BILIRUBIN,TOTAL 1.1 mg/dL (0.2-1.0)
[2016-11-04] MEDS ORDERED: PT OWN MED DRAWER 7, Y5N ONE ×3 (08:46→21:05)
[2016-11-04] MEDS: LISINOPRIL 20 MG TABLET (FP) PO SCH (09:30)
[2016-11-04] MEDS: amLODIPine BESYLATE 10 MG TABLET (FP) PO SCH (09:30)
[2016-11-04] MEDS: PANTOPRAZOLE SODIUM 40 MG in SODIUM CHLORIDE 100 ML IVPB SCH ×2 (10:39→21:19)
--- NOTE | 2016-11-04 10:43 | PN ---
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 He smokes alot and now has severe epigastric pains NO N/V fever Has high blood pressure. Asked to see for pancreatitis/antibiotic ON IMIPENEM He does not drink Selected Entries 11/04/16 07:05 Temperature 98.8 F Pulse Rate 65 Respiratory 20 Rate Blood Pressure 136/85 Abd Soft mild epigastric tenderness BS pos no guarding Laboratory Tests 11/02/16 11/03/16 11/03/16 22:10 08:40 20:45 WBC 16.7 H Hgb 14.8 Hct 45.2 Plt Count 265 BUN 11 Creatinine 0.8 Creat Clearance w eGFR > 60 AST 17 ALT 31 Alkaline Phosphatase 79 Total Amylase 52 Lipase 278 Assessment Etiology of pain unclear but does not seem consistent with acute pancreatitis. in any case given absence of fever chills or pancreatic collection I do not see indication for antibiotic Still concern is ischemia despite neg CT angio Penetrating ulcer considered Plan Can observe off antibiotic Agree with vascular surgery consult ESR CRP Gi Follow up Daisha MERRITT Problem List - Problems (1) Abdominal pain Code(s): R10.9 - UNSPECIFIED ABDOMINAL PAIN Qualifiers: Abdominal location: epigastric Qualified Code(s): R10.13 - Epigastric pain (2) Pancreatitis Code(s): K85.90 - ACUTE PANCREATITIS WITHOUT NECROSIS OR INFECTION, UNSP Qualifiers: Chronicity: acute Pancreatitis type: other Acute pancreatitis complication: unspecified Qualified Code(s): K85.80 - Other acute pancreatitis without necrosis or infection (3) Mesenteric ischemia Code(s): K55.9 - VASCULAR DISORDER OF INTESTINE, UNSPECIFIED
[2016-11-04] MEDS ORDERED: ONDANSETRON 4 MG/2 ML VIAL IVPUSH PRN (11:24)
--- NOTE | 2016-11-04 11:45 | CONS ---
INFECTIOUS DISEASE CONSULTATION DATE OF CONSULTATION: DATE OF DICTATION: 11/04/2016 HISTORY OF PRESENT ILLNESS: This is a 51-year-old male who was admitted with chief complaint of 2-day history of severe epigastric pain. The patient was otherwise in his usual state of health until 2 days before when he developed onset of progressive pain in the epigastric region, unassociated with any nausea or vomiting. Here, a CAT scan initially suggested the possibility of mild pancreatitis. However, his amylase and lipase were both normal. He admits drinking alcohol but only an occasional beer now and then and is on medications only for hypertension. A sonogram of the gallbladder here showed no evidence of gallstones and a normal gallbladder. Of note is that the patient has a history of vascular insufficiency to his lower legs, diagnosed several years ago and followed by a vascular surgeon in [place]. He had an angioplasty performed 2 years ago, and about a year ago, underwent placement of a left iliac stent. He is a heavy smoker and continues to smoke currently. He has no fever, chills, night sweats, loss of appetite, and I am asked to see him for imipenem, having already been started per on antibiotic treatment. He remains afebrile in the hospital. PAST MEDICAL HISTORY: Includes peripheral vascular disease with angioplasty and stent, left groin iliac; hypertension. SOCIAL HISTORY: Smoker for many years. Denies alcohol abuse. Denies substance abuse. HIV status unknown. FAMILY HISTORY: Reviewed and noncontributory. REVIEW OF SYSTEMS: Respiratory: No cough, shortness of breath, or hemoptysis. Cardiac: No chest pain, palpitations, or syncope. Gastrointestinal: Epigastric discomfort, mild, 2-3 on a scale of 10. No vomiting, diarrhea, hematemesis, blood per rectum, or diarrhea. Genitourinary: No dysuria, hematuria, urinary frequency. PHYSICAL EXAMINATION: General: He was a heavy-set male, alert and in no distress. Vital Signs: Temperature was 98.8, pulse 65, blood pressure 136/85, respirations 20. Neck: Supple. Lungs: Clear to P&A. Heart: S1, S2. Regular rhythm without murmur. Abdomen: Soft. Positive bowel sounds. Mild tenderness noted in the epigastric area without rebound or guarding. No palpable mass. Umbilical hernia noted. Extremities: No clubbing, cyanosis, or edema. DIAGNOSTIC DATA: The white count is 15.2, hemoglobin 14, platelets of 232. INR of 1.1. BUN 11, creatinine 0.6. Bilirubin 1.1. Liver enzymes within normal limit. LDL cholesterol 130. Total amylase is 52. Two sets of blood cultures are no growth. Urine culture pending. CT angiogram shows [id number] acute inflammation of the pancreatic head with no evidence of pancreatic necrosis or abscess. No obvious evidence of vascular insufficiency noted. 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 His pain currently is minimal , and he has no temperature. The CT scan does not suggest immediately vascular insufficiency, though I am still concerned about this in the differential diagnosis. Clinically, he does not appear to have classic pancreatitis nor is there any indication for antibiotics for this diagnosis at this time. As his blood cultures are thus far no growth and he has no fever nor does he appear toxic, I would be inclined to observe him off of antibiotics completely. He has been seen by Surgery already with no consideration ofan acute surgical abdomen, and he will be seen by Vascular Surgery here later today. We will obtain an ESR , CRP, and HIV testing and discontinue antibiotics. MEL CLARKE M.D. DILMA/[id number] MTDD
--- NOTE | 2016-11-04 12:00 | PN ---
Progress Note (short form) - Note Progress Note: Vascular Surgery Pt seen and examined. Abd is soft,nt,nd CTA is negative for any meseteric ischemia. SMA and ALVARADO are patent. Mild stenosis of celiac artery. No need for any vascular intervention. Medical management. Bang Marte DO
[2016-11-04 12:58] LABS: HIV 1 & 2 AB NEGATIVE; HIV 1 AGp24 NEGATIVE
--- NOTE | 2016-11-04 13:09 | PN ---
Physical Exam: SUBJECTIVE: Patient seen and examined OBJECTIVE: Vital Signs Period Temp Pulse Resp BP Sys/Davis Pulse Ox Last 24 Hr 98.2 F-99.4 F 63-71 16-20 136-170/73-85 98-99 GENERAL: The patient is awake, alert, and fully oriented, in no acute distress. HEAD: Normal with no signs of trauma. EYES: PERRL, extraocular movements intact, sclera anicteric, conjunctiva clear. No ptosis. ENT: Ears normal, nares patent, oropharynx clear without exudates, moist mucous membranes. NECK: Trachea midline, full range of motion, supple. LUNGS: Breath sounds equal, clear to auscultation bilaterally, no wheezes, no crackles, no accessory muscle use. HEART: Regular rate and rhythm, S1, S2 without murmur, rub or gallop. ABDOMEN: Soft, nontender, nondistended, normoactive bowel sounds, no guarding, no rebound, no hepatosplenomegaly, no masses. EXTREMITIES: 2+ pulses, warm, well-perfused, no edema. NEUROLOGICAL: Cranial nerves II through XII grossly intact. Normal speech, gait not observed. PSYCH: Normal mood, normal affect. SKIN: Warm, dry, normal turgor, no rashes or lesions noted Laboratory Results - last 24 hr 11/03/16 11/03/16 11/03/16 20:45 20:45 20:45 WBC 16.1 H RBC 5.15 Hgb 14.4 Hct 43.6 MCV 84.8 MCH 28.0 MCHC 33.0 RDW 15.7 Plt Count 242 MPV 8.2 Neutrophils % 74.4 Lymphocytes % 14.9 Monocytes % 7.8 Eosinophils % 2.0 Basophils % 0.9 ESR PTT (Actin FS) Sodium 135 L Potassium 3.7 Chloride 100 Carbon Dioxide 29 Anion Gap 6 L BUN 11 Creatinine 0.8 Creat Clearance w eGFR > 60 Random Glucose 93 D Lactic Acid 1.0 Calcium 9.1 Phosphorus Magnesium 2.1 Total Bilirubin 0.6 Direct Bilirubin AST 17 ALT 31 Alkaline Phosphatase 79 Troponin I < 0.02 C-Reactive Protein Total Protein 7.5 Albumin 3.5 Triglycerides Cholesterol Total LDL Cholesterol HDL Cholesterol HIV 1&2 Antibody Screen HIV P24 Antigen 11/04/16 11/04/16 11/04/16 06:00 06:00 06:00 WBC 15.2 H RBC 5.04 Hgb 14.0 Hct 42.5 MCV 84.3 MCH 27.7 MCHC 32.9 RDW 15.7 Plt Count 232 MPV 8.0 Neutrophils % 78.3 Lymphocytes % 11.6 D Monocytes % 7.6 Eosinophils % 1.9 Basophils % 0.6 ESR PTT (Actin FS) Sodium 134 L Potassium 3.9 Chloride 99 Carbon Dioxide 28 Anion Gap 7 L BUN 10 Creatinine 0.7 Creat Clearance w eGFR Random Glucose 85 Lactic Acid Calcium 9.4 Phosphorus 3.6 Magnesium 2.0 Total Bilirubin 1.1 H D Direct Bilirubin 0.2 AST 12 L D ALT 26 Alkaline Phosphatase 76 Troponin I C-Reactive Protein Total Protein 7.0 Albumin 3.3 L Triglycerides 179 H Cholesterol 207 H Total LDL Cholesterol 130 H HDL Cholesterol 51 HIV 1&2 Antibody Screen HIV P24 Antigen 11/04/16 11/04/16 11/04/16 06:00 11:30 11:30 WBC RBC Hgb Hct MCV MCH MCHC RDW Plt Count MPV Neutrophils % Lymphocytes % Monocytes % Eosinophils % Basophils % ESR 30 H PTT (Actin FS) 26.3 L Sodium Potassium Chloride Carbon Dioxide Anion Gap BUN Creatinine Creat Clearance w eGFR Random Glucose Lactic Acid Calcium Phosphorus Magnesium Total Bilirubin Direct Bilirubin AST ALT Alkaline Phosphatase Troponin I C-Reactive Protein 15.7 H Total Protein Albumin Triglycerides Cholesterol Total LDL Cholesterol HDL Cholesterol HIV 1&2 Antibody Screen HIV P24 Antigen 11/04/16 11:30 WBC RBC Hgb Hct MCV MCH MCHC RDW Plt Count MPV Neutrophils % Lymphocytes % Monocytes % Eosinophils % Basophils % ESR PTT (Actin FS) Sodium Potassium Chloride Carbon Dioxide Anion Gap BUN Creatinine Creat Clearance w eGFR Random Glucose Lactic Acid Calcium Phosphorus Magnesium Total Bilirubin Direct Bilirubin AST ALT Alkaline Phosphatase Troponin I C-Reactive Protein Total Protein Albumin Triglycerides Cholesterol Total LDL Cholesterol HDL Cholesterol HIV 1&2 Antibody Screen Negative HIV P24 Antigen Negative Active Medications Generic Name Dose Route Start Last Admin Trade Name Freq PRN Reason Stop Dose Admin Acetaminophen 650 mg 11/03/16 07:45 Tylenol - PO Q6H PRN FEVER OR PAIN Amlodipine Besylate 10 mg 11/03/16 07:15 11/04/16 09:30 Norvasc - PO 10 mg DAILY [facility] Administration Heparin Sodium (Porcine) 5,000 unit 11/04/16 14:00 Heparin - SQ TID ZULEIMA Hydromorphone HCl 2 mg 11/04/16 11:23 Dilaudid Injection - IVPB Q6H PRN PAIN Pantoprazole Sodium 40 mg/ 100 mls @ 200 mls/hr 11/03/16 22:00 11/04/16 10:39 Sodium Chloride IVPB 200 mls/hr BID ZULEIMA Administration Sodium Chloride 1,000 mls @ 125 mls/hr 11/04/16 07:34 11/04/16 09:21 Normal Saline - IV 125 mls/hr ASDIR ZULEIMA Administration Lisinopril 20 mg 11/03/16 07:15 11/04/16 09:30 Prinivil PO 20 mg DAILY ZULEIMA Administration Ondansetron HCl 4 mg 11/04/16 11:24 Zofran Injection IVPUSH Q6H PRN NAUSEA AND/OR VOMITING ASSESSMENT/PLAN 51 year-old male with a PMH significant for HTN, and PVD s/p left common iliac artery stent (x 1 year). Admitted for acute pancreatitis. Acute pancreatitis --11/03 CTAP: fat stranding surrounding the head of the pancreas c/w pancreatitis --11/04 CTA: negative for mesenteric ischemia --afebrile but persistent leukocytosis; observe off antibiotics --IV fluids --dilaudid, Zofran PRN --GI following --ID following Hypertension --BP has been elevated possibly secondary to pain --continue home Lisinopril, amlodipine PVD s/p left common iliac artery stent --had been off Plavix and ASA for unclear period of time due to lack of insurance, restarted 3 weeks ago --continue ASA, Plavix Fluids: LR @ 125mL/hr Electrolytes: replete as indicated Nutrition: NPO DVT prophylaxis: subq heparin Dispo: continues to require inpatient care. Full code.
[2016-11-04] MEDS ORDERED: HEPARIN NA (PORCINE) 5,000 UNITS/ML 1ML VIAL SQ SCH (14:00)
--- NOTE | 2016-11-04 14:31 | PN ---
Progress Note (short form) - Note Progress Note: No new events Pain improved NPO CTA - no evidence of mesenteric ischemia CBC, [facility] 11/04/16 06:00 11/04/16 06:00 Abd soft, minimal tenderness, no rebound, chronic nontender umbilical hernia CBC, [facility] 11/04/16 06:00 11/04/16 06:00 Seen by vascular surgery Clears if pain continues to improve IV fluids Does not need IV heparin if mesenteric ischemia is ruled out Problem List - Problems (1) Abdominal pain Code(s): R10.9 - UNSPECIFIED ABDOMINAL PAIN Qualifiers: Abdominal location: epigastric Qualified Code(s): R10.13 - Epigastric pain (2) Pancreatitis Code(s): K85.90 - ACUTE PANCREATITIS WITHOUT NECROSIS OR INFECTION, UNSP Qualifiers: Chronicity: acute Pancreatitis type: other Acute pancreatitis complication: unspecified Qualified Code(s): K85.80 - Other acute pancreatitis without necrosis or infection
--- NOTE | 2016-11-04 18:35 | PN ---
GI Progress Note Subjective: abdominal pain improved, no nausea and vomiting, persistent elevation of WBC, still needing dilaudid for pain butless frequently, CTA negative for ischemia but could not be ruled completely because of underlying thrombosis of iliac artery - Objective Vital Signs: Vital Signs Temperature 98.8 F 11/04/16 16:10 Pulse Rate 64 11/04/16 16:10 Respiratory Rate 20 11/04/16 16:10 Blood Pressure 146/69 11/04/16 16:10 O2 Sat by Pulse Oximetry (%) 98 11/04/16 09:00 Constitutional: Well Nourished, Obese Eyes: Yes: Occular Prosthesis Cardiovascular: Yes: Regular Rate and Rhythm Respiratory: Yes: CTA Bilaterally ...Palpate: Yes: Soft. No: Firm/Rigid, Guarding, Hepatomegaly, Mass, Pulsatile Mass, Splenomegaly, Tenderness, Tenderness, Epigastium Labs: CBC, BMP 11/04/16 06:00 11/04/16 06:00 INR, PTT INR 1.11 (0.82-1.09) 11/02/16 22:10 Problem List - Problems (1) Abdominal pain Assessment/Plan: R> if WBC willl advance diet, will need EGD to rule out malignancy Code(s): R10.9 - UNSPECIFIED ABDOMINAL PAIN Qualifiers: Abdominal location: epigastric Qualified Code(s): R10.13 - Epigastric pain
[2016-11-04] MEDS: SODIUM CHLORIDE 1,000 ML IV SCH (23:22)
[2016-11-05] MEDS: HYDROmorphone HCL CARPU-JECT 2 MG/1 ML DISP.SYRIN IVPB PRN (02:09)
[2016-11-05 07:53] LABS: EOSINOPHIL 3.2 % (0-4.5); MCH 28.5 pg (25.7-33.7); MCHC 33.8 g/dl (32.0-35.9); MEAN CELL VOLUME 84.3 fl (80-96); NEUTROPHILS 70.5 % (42.8-82.8); PLATELET COUNT 227 K/MM3 (134-434); RDW 14.9 % (11.9-15.9); WHITE BLOOD COUNT 8.9 K/mm3 (4.0-10.0)
[2016-11-05 07:54] LABS: BASOPHIL 0.4 % (0-2.0)
[2016-11-05 08:59] LABS: ALBUMIN 3.3 g/dl (3.4-5.0); ALK PHOS 71 U/L (45-117); ANION GAP 11 (8-16); BILIRUBIN,TOTAL 0.7 mg/dL (0.2-1.0); CALCIUM 8.9 mg/dL (8.5-10.1); CO2 25 mmol/L (21-32); CREATININE 0.7 mg/dL (0.7-1.3); GLUCOSE,RANDOM 77 mg/dL (74-106); MAGNESIUM 2.3 mg/dL (1.8-2.4); PHOSPHOROUS 2.8 mg/dL (2.5-4.9); SGOT/AST 15 U/L (15-37); SGPT/ALT 24 U/L (12-78); TOT PROT 6.9 g/dl (6.4-8.2)
[2016-11-05] MEDS ORDERED: INSULIN (NOVOLOG) ASPART 100 UNITS/ML 10ML VIAL ONE (09:01)
[2016-11-05] MEDS ORDERED: INSULIN DETEMIR 100 UNITS/ML MDV SQ ONE (09:01)
[2016-11-05] MEDS ORDERED: PT OWN MED DRAWER 7, Y5N ONE (09:02)
[2016-11-05] MEDS: PANTOPRAZOLE SODIUM 40 MG in SODIUM CHLORIDE 100 ML IVPB SCH ×2 (09:27→21:12)
[2016-11-05] MEDS: SODIUM CHLORIDE 1,000 ML IV SCH (09:27)
[2016-11-05] MEDS: amLODIPine BESYLATE 10 MG TABLET (FP) PO SCH (09:27)
[2016-11-05] MEDS: LISINOPRIL 20 MG TABLET (FP) PO SCH (09:27)
--- NOTE | 2016-11-05 11:07 | PN ---
Progress Note (short form) - Note Progress Note: hunger pangs, no pain wants to eat no fevers Vital Signs Period Temp Pulse Resp BP Sys/Davis Pulse Ox Last 24 Hr 97.7 F-98.8 F 52-70 16-20 130-156/61-78 98 cor-rrr llungs clear abd soft,nt ext no edema CBC, BMP 11/05/16 06:30 11/05/16 06:30 CTA pancreatic inflammation noted, no bowel ischemia Microbiology 11/03/16 20:00 Urine - Urine Clean Catch Urine Culture - Final NO GROWTH OBTAINED 11/03/16 12:54 Blood - Peripheral Venous Blood Culture - Preliminary NO GROWTH OBTAINED AFTER 24 HOURS, INCUBATION TO CONTINUE FOR 4 DAYS. 11/03/16 12:40 Blood - Peripheral Venous Blood Culture - Preliminary NO GROWTH OBTAINED AFTER 24 HOURS, INCUBATION TO CONTINUE FOR 4 DAYS. a/p leukocytosis resolved off antibiotics further management per GI please call back if needed
--- NOTE | 2016-11-05 12:34 | PN ---
Progress Note (short form) - Note Progress Note: No acute events Pain improved NPO Vital Signs Period Temp Pulse Resp BP Sys/Davis Pulse Ox Last 24 Hr 97.7 F-98.8 F 52-70 16-20 130-156/61-78 97-98 Abd soft, NT CBC,CMP WBC 8.9 K/mm3 (4.0-10.0) D 11/05/16 06:30 RBC 4.75 M/mm3 (4.00-5.60) 11/05/16 06:30 Hgb 13.5 GM/dL (11.7-16.9) 11/05/16 06:30 Hct 40.0 % (35.4-49) 11/05/16 06:30 MCV 84.3 fl (80-96) 11/05/16 06:30 MCH 28.5 pg (25.7-33.7) 11/05/16 06:30 MCHC 33.8 g/dl (32.0-35.9) 11/05/16 06:30 RDW 14.9 % (11.9-15.9) 11/05/16 06:30 Plt Count 227 K/MM3 (134-434) 11/05/16 06:30 MPV 8.0 fl (7.5-11.1) 11/05/16 06:30 Neutrophils % 70.5 % (42.8-82.8) 11/05/16 06:30 Lymphocytes % 18.8 % (8-40) D 11/05/16 06:30 Monocytes % 7.1 % (3.8-10.2) 11/05/16 06:30 Eosinophils % 3.2 % (0-4.5) 11/05/16 06:30 Basophils % 0.4 % (0-2.0) 11/05/16 06:30 ESR 30 mm/hr (0-20) H 11/04/16 11:30 Sodium 138 mmol/L (136-145) 11/05/16 06:30 Potassium 3.8 mmol/L (3.5-5.1) 11/05/16 06:30 Chloride 102 mmol/L (98-107) 11/05/16 06:30 Carbon Dioxide 25 mmol/L (21-32) 11/05/16 06:30 Anion Gap 11 (8-16) 11/05/16 06:30 BUN 10 mg/dL (7-18) 11/05/16 06:30 Creatinine 0.7 mg/dL (0.7-1.3) 11/05/16 06:30 Creat Clearance w eGFR > 60 (>60) 11/05/16 06:30 Random Glucose 77 mg/dL (74-106) 11/05/16 06:30 Hemoglobin A1c % 6.5 % (4.8-6.0) H 11/03/16 08:40 Lactic Acid 1.0 mmol/L (0.4-2.0) 11/03/16 20:45 Calcium 8.9 mg/dL (8.5-10.1) 11/05/16 06:30 Phosphorus 2.8 mg/dL (2.5-4.9) D 11/05/16 06:30 Magnesium 2.3 mg/dL (1.8-2.4) 11/05/16 06:30 Total Bilirubin 0.7 mg/dL (0.2-1.0) D 11/05/16 06:30 Direct Bilirubin 0.2 mg/dL (0.0-0.2) 11/04/16 06:00 AST 15 U/L (15-37) D 11/05/16 06:30 ALT 24 U/L (12-78) 11/05/16 06:30 Alkaline Phosphatase 71 U/L (45-117) 11/05/16 06:30 Creatine Kinase 275 IU/L (39-308) 11/03/16 08:40 Creatine Kinase Index 0.7 % (0.0-5.0) 11/03/16 08:40 CK-MB (CK-2) 1.993 ng/mL (0.5-3.6) 11/03/16 08:40 Troponin I < 0.02 ng/ml (0.00-0.05) 11/03/16 20:45 C-Reactive Protein 15.7 MG/DL (0.00-0.3) H 11/04/16 11:30 Total Protein 6.9 g/dl (6.4-8.2) 11/05/16 06:30 Albumin 3.3 g/dl (3.4-5.0) L 11/05/16 06:30 Triglycerides 179 mg/dL (35-160) H 11/04/16 06:00 Cholesterol 207 mg/dL (50-200) H 11/04/16 06:00 Total LDL Cholesterol 130 mg/dL (5-100) H 11/04/16 06:00 HDL Cholesterol 51 mg/dL (40-60) 11/04/16 06:00 Total Amylase 52 U/L (25-115) 11/03/16 08:40 Lipase 278 U/L (73-393) 11/03/16 08:40 Clears Advance diet as tolerated Discussed abstaining from alcohol No surgical intervention needed Thank you Problem List - Problems (1) Abdominal pain Code(s): R10.9 - UNSPECIFIED ABDOMINAL PAIN Qualifiers: Abdominal location: epigastric Qualified Code(s): R10.13 - Epigastric pain (2) Pancreatitis Code(s): K85.90 - ACUTE PANCREATITIS WITHOUT NECROSIS OR INFECTION, UNSP Qualifiers: Chronicity: acute Pancreatitis type: other Acute pancreatitis complication: unspecified Qualified Code(s): K85.80 - Other acute pancreatitis without necrosis or infection
--- NOTE | 2016-11-05 15:28 | PN ---
Physical Exam: SUBJECTIVE: Patient seen and examined at bedside. present. Tolerated clears for lunch. Feels well, no abdominal pain. No nausea. OBJECTIVE: Vital Signs Period Temp Pulse Resp BP Sys/Davis Pulse Ox Last 24 Hr 97.7 F-98.8 F 52-64 16-20 133-156/54-78 97-98 GENERAL: The patient is awake, alert, and fully oriented, in no acute distress. HEAD: Normal with no signs of trauma. EYES: PERRL, extraocular movements intact, sclera anicteric, conjunctiva clear. No ptosis. ENT: Ears normal, nares patent, oropharynx clear without exudates, moist mucous membranes. NECK: Trachea midline, full range of motion, supple. LUNGS: Breath sounds equal, clear to auscultation bilaterally, no wheezes, no crackles, no accessory muscle use. HEART: Regular rate and rhythm, S1, S2 without murmur, rub or gallop. ABDOMEN: Soft, nontender, nondistended, normoactive bowel sounds, no guarding, no rebound, no hepatosplenomegaly, no masses. EXTREMITIES: 2+ pulses, warm, well-perfused, no edema. NEUROLOGICAL: Cranial nerves II through XII grossly intact. Normal speech, gait not observed. PSYCH: Normal mood, normal affect. SKIN: Warm, dry, normal turgor, no rashes or lesions noted Laboratory Results - last 24 hr 11/05/16 11/05/16 06:30 06:30 WBC 8.9 D RBC 4.75 Hgb 13.5 Hct 40.0 MCV 84.3 MCH 28.5 MCHC 33.8 RDW 14.9 Plt Count 227 MPV 8.0 Neutrophils % 70.5 Lymphocytes % 18.8 D Monocytes % 7.1 Eosinophils % 3.2 Basophils % 0.4 Sodium 138 Potassium 3.8 Chloride 102 Carbon Dioxide 25 Anion Gap 11 BUN 10 Creatinine 0.7 Creat Clearance w eGFR > 60 Random Glucose 77 Calcium 8.9 Phosphorus 2.8 D Magnesium 2.3 Total Bilirubin 0.7 D AST 15 D ALT 24 Alkaline Phosphatase 71 Total Protein 6.9 Albumin 3.3 L Active Medications Generic Name Dose Route Start Last Admin Trade Name Freq PRN Reason Stop Dose Admin Acetaminophen 650 mg 11/03/16 07:45 Tylenol - PO Q6H PRN FEVER OR PAIN Amlodipine Besylate 10 mg 11/03/16 07:15 11/05/16 09:27 Norvasc - PO 10 mg DAILY ZULEIMA Administration Hydromorphone HCl 2 mg 11/04/16 11:23 11/05/16 02:09 Dilaudid Injection - IVPB 2 mg Q6H PRN Administration PAIN Pantoprazole Sodium 40 mg/ 100 mls @ 200 mls/hr 11/03/16 22:00 11/05/16 09:27 Sodium Chloride IVPB 200 mls/hr BID ZULEIMA Administration Sodium Chloride 1,000 mls @ 125 mls/hr 11/04/16 18:30 11/05/16 09:27 Normal Saline - IV 11/07/16 02:29 125 mls/hr ASDIR ZULEIMA Administration Lisinopril 20 mg 11/03/16 07:15 11/05/16 09:27 Prinivil PO 20 mg DAILY ZULEIMA Administration Ondansetron HCl 4 mg 11/04/16 11:24 Zofran Injection IVPUSH Q6H PRN NAUSEA AND/OR VOMITING ASSESSMENT/PLAN:
[2016-11-06] MEDS: LISINOPRIL 20 MG TABLET (FP) PO SCH (10:09)
[2016-11-06] MEDS: amLODIPine BESYLATE 10 MG TABLET (FP) PO SCH (10:09)
[2016-11-06] MEDS: PANTOPRAZOLE SODIUM 40 MG in SODIUM CHLORIDE 100 ML IVPB SCH (10:09)
--- NOTE | 2016-11-06 13:13 | DS ---
Physical Exam: SUBJECTIVE: Patient seen and examined at the bedside. States he feels well, denies any pain or discomfort. Tolerating regular diet, no abdominal pain. OBJECTIVE: BP elevated this am : 191/86, ivf d/c, repeat BP 153/80s Patient refusing EGD or further blood work, wants to leave. Patient states he as a new PCP, Dr. Adorno in [place] and will follow up with him for blood work and BP monitoring. Encouraged patient to see Dr. English as an outpatient. Vital Signs Period Temp Pulse Resp BP Sys/Davis Pulse Ox Last 24 Hr 97.9 F-100.1 F 59-84 16-20 140-191/54-97 97 PHYSICAL EXAM GENERAL: The patient is awake, alert, and fully oriented, in no acute distress. HEAD: Normal with no signs of trauma. EYES: PERRL, extraocular movements intact, sclera anicteric, conjunctiva clear. ENT: Ears normal, nares patent, oropharynx clear without exudates, moist mucous membranes. NECK: Trachea midline, full range of motion, supple. LUNGS: Breath sounds equal, clear to auscultation bilaterally, no wheezes, no crackles, no accessory muscle use. HEART: Regular rate and rhythm, S1, S2 without murmur, rub or gallop. ABDOMEN: Soft, bloated + bowel sounds, patient refusing further workup EXTREMITIES: 2+ pulses, warm, well-perfused, no edema. NEUROLOGICAL: Cranial nerves II through XII grossly intact. Normal speech, gait not observed. PSYCH: Normal mood, normal affect. SKIN: Warm, dry, normal turgor, no rashes or lesions noted. LABS HOSPITAL COURSE: Date of Admission:11/03/16 Date of Discharge: 11/06/16 ASSESSMENT/PLAN Patient is a 51 year old male with a significant past medical history of hypertenstion, PVD s/p left common iliac artery stent (x 1 year). Admitted on for acute pancreatitis. GI: Acute Pancreatitis - improved A/P: 11/03 CTAP: Fat stranding surrounding the head of the pancreas c/w pancreatitis Tolerating a regular diet and denies any further abdominal pain, nausea or vomiting refusing further work up, labs or EGD Seen by GI prior to discharge Patient agreeing to EGD as an outpatient, information provided Cardiology: Hypertension - chronic A/P: BP elevated this morning, IVF stopped, repeat BP stable Patient to follow up with PCP next week (Tuesday) and follow up On Lisinopril, amlodipine Hyperlipidemia A/P: Lipitor started for home use Vascular: PVD s/p left common iliac artery stent A/P: continue ASA, Plavix Dispo: Discharge today with PCP follow up. Minutes to complete discharge: 60 Discharge Summary Reason For Visit: PANCREATITIS Current Active Problems Abdominal pain (Acute) Mesenteric ischemia (Acute) Pancreatitis (Acute) Condition: Stable - Instructions Diet, Activity, Other Instructions: Mr. [place]: Please follow up with your primary care physician within 1 week after discharge. Please take all your medications as prescribed. Please make an follow up appointment with Dr. English. Please return to the ER if your symptoms worsen or persist. Thank you. Dominique Bean NP [facility] [phone] Referrals: Pa English MD [Staff Physician] - Pablo Hurtado [Non Staff, Medical] - Disposition: HOME - Home Medications Comprehensive Discharge Medication List: Ambulatory Orders Amlodipine Besylate [Norvasc -] 10 mg PO DAILY 11/02/16 Aspirin [Aspirin EC] 81 mg PO DAILY 11/02/16 Clopidogrel Bisulfate [Plavix -] 75 mg PO DAILY 11/02/16 Lisinopril [Prinivil] 20 mg PO DAILY 11/02/16 This patient is new to me today: Yes Date on this admission: 11/06/16 Emergency Visit: Yes ED Registration Date: 11/03/16 Care time: The patient presented to the Emergency Department on the above date and was hospitalized for further evaluation of their emergent condition. Critical Care patient: No - Discharge Referral Referred to [facility] No
[2016-11-06 13:30] VITALS: BP 153/81; PULSE 82; TEMP 97.8
[2016-11-06] MEDS ORDERED: ATORVASTATIN CA 20 MG TABLET (FP) PO SCH (22:00)
== END 2016-11-06 16:02 | disposition home or self-care (01) | DRG 282 ==
LOC: JER 20:21 → UNDOADMOB 11-03 02:46 → JERBED 11-03 02:46 → INTOOBSV 11-03 02:46 → JERBED 11-03 03:43 → J8W 11-03 03:43 → UNDOADMOB 11-03 03:43 → JERBED 11-03 05:02 → J8W 11-03 05:02 → INTOOBSV 11-03 12:29 → OBSVTOIN 11-03 12:29
PROVIDERS: ADMIT Internal Medicine; ATTEND Nurse Practitioner Family
DX: K85.80 Other acute pancreatitis without necrosis or infection (principal); I10 Essential (primary) hypertension; F17.210 Nicotine dependence, cigarettes, uncomplicated; R07.89 Other chest pain; K52.89 Other specified noninfective gastroenteritis and colitis; I73.89 Other specified peripheral vascular diseases; R10.13 Epigastric pain; I77.4 Celiac artery compression syndrome; D72.828 Other elevated white blood cell count; E78.5 Hyperlipidemia, unspecified; K55.059 Acute (reversible) ischemia of intestine, part and extent unspecified
CPT/HCPCS: 36415; 71010-TC; 71020-TC; 74020-TC; 74174-TC; 74177-TC; 76705-TC; 80048; 80053; 80061; 80076; 81003; 81015; 82150; 82553; 83036; 83605; 83690; 83721; 83735; 84100; 84484; 85025; 85610; 85651; 85730; 86140; 87040; 87086; 87389; 93005; 93010; 93306-TC; 99285-25; G0378; J1644

== ENCOUNTER 2018-07-10 11:29 | Emergency (ER) | payer OTHER | END 2018-07-10 12:21 | disposition home or self-care (01) | LOC: JERFT 11:29 ==